=== PATIENT | male | born 1945 | race Caucasian/White ===

== ENCOUNTER 2016-03-26 17:32 | Inpatient (IN) | payer MEDICARE ==
[~2016-03-26] VITALS: Ht 175.3 cm; Wt 79.7 kg
[~2016-03-26 17:32] MED LIST: ASPI-1093 PO; ATOR40TA28 PO; BACL10TA PO; DULO20CA30 PO; PREG50 PO; RISP3 PO; TAMS0.4C32 PO
[2016-03-26 19:15] LABS: BASOPHILS % (AUTO) 0.3 % (0.0-2.0); EOSINOPHILS % (AUTO) 0.5 % (1.0-6.0); HEMATOCRIT 44.6 % (41-53); LYMPHOCYTES % (AUTO) 22.4 % (22.0-44.0); MEAN CORPUSCULAR HGB CONC 33.6 G/dL (31.0-37.0); MEAN CORPUSCULAR VOLUME 95 fL (80-100); MONOCYTES # (AUTO) 0.7 K/uL (0.1-1.0); MONOCYTES % (AUTO) 7.5 % (2.0-9.0); NEUTROPHILS # (AUTO) 6.2 K/uL (1.8-7.7); NEUTROPHILS % (AUTO) 69.3 % (40.0-70.0); PLATELET COUNT (AUTO) 187 K/uL (150-450); RED BLOOD CELL COUNT(AUTO) 4.69 MIL/uL (4.50-5.90); RED CELL DISTRIBUTION WIDTH 13.8 % (11.5-14.5)
[2016-03-26 19:26] LABS: ANION GAP 8 mmol/L (8-16); CALCIUM, TOTAL 8.6 mg/dL (8.8-10.5); CARBON DIOXIDE 27 mmol/L (22-29); CHLORIDE 101 mmol/L (98-107); CREATININE 0.88 mg/dL (0.60-1.30); GLOMERULAR FILTR. RATE CALC > 60 mL/min (>60); POTASSIUM 4.5 mmol/L (3.5-5.1); SODIUM SERUM 136 mmol/L (136-145); UREA NITROGEN, BLOOD 18 mg/dL (7-18)
[2016-03-26 19:32] LABS: ALANINE AMINOTRANSFERASE 24 U/L (12-78); ALBUMIN 3.3 g/dL (3.4-5.0); ASPARTATE AMINOTRANSFERASE 12 U/L (15-37); BILIRUBIN,TOTAL 0.3 mg/dL (0.1-1.0); TOTAL PROTEIN, SERUM 6.5 g/dL (6.4-8.2)
[2016-03-27] MEDS ORDERED: ZOLPIDEM TARTRATE 10 MG TABLET PO ONE (02:00)
[2016-03-27] MEDS ORDERED: ACETAMINOPHEN 325 MG TABLET PO PRN (16:15)
[2016-03-27] MEDS ORDERED: ZOLPIDEM TARTRATE 10 MG TABLET PO PRN (16:15)
[2016-03-27] MEDS ORDERED: MAGNESIUM HYDROXIDE SUSPENSION 30 ML UDCUP PO PRN (16:15)
[2016-03-27] MEDS ORDERED: LORazepam 1 MG TABLET PO PRN (16:15)
[2016-03-27] MEDS ORDERED: HydrOXYzine PAMOATE 50 MG CAPSULE PO PRN (16:15)
[2016-03-27] MEDS ORDERED: PROMETHAZINE HCL 25 MG TABLET PO PRN (16:15)
[2016-03-27] MEDS ORDERED: GuaiFENesin/D-METHORPHAN [SUGAR-FREE] 200-20MG/10 ML SYRUP UDCUP PO PRN (16:15)
[2016-03-27] MEDS ORDERED: QUEtiapine FUMARATE 25 MG TABLET PO PRN (16:15)
[2016-03-27] MEDS ORDERED: MAG HYDROX/AL HYDROX/SIMETH ES 30 ML SUSPENSION UDCUP PO PRN (16:15)
[2016-03-27] MEDS ORDERED: LOPERAMIDE HCL 2 MG CAPSULE PO PRN (16:15)
[2016-03-27] MEDS: PREGABALIN 50 MG CAPSULE PO SCH (19:01)
[2016-03-27] MEDS: THIAMINE HCL 100 MG TABLET PO SCH (19:01)
[2016-03-27] MEDS: QUEtiapine FUMARATE 100 MG TABLET PO SCH (20:08)
[2016-03-27 20:37] VITALS: BP 125/58
[2016-03-27 23:36] LABS: APPEARANCE,URINE CLEAR (CLEAR); GLUCOSE, URINE (UA) NEGATIVE (NEGATIVE); KETONES,URINE NEGATIVE (NEGATIVE); LEUKOCYTE ESTERASE ,URINE NEGATIVE (NEGATIVE); OCCULT BLOOD,URINE NEGATIVE (NEGATIVE); PH,URINE 5.5 (5.0-8.0); PROTEIN,URINE NEGATIVE (NEGATIVE)
[2016-03-27 23:37] LABS: ADD UA MICROSCOPIC NO
[2016-03-28 08:07] LABS: BASOPHILS % (AUTO) 0.6 % (0.0-2.0); EOSINOPHILS % (AUTO) 0.7 % (1.0-6.0); HEMATOCRIT 49.2 % (41-53); HEMOGLOBIN 16.7 g/dL (13.5-17.5); LYMPHOCYTES % (AUTO) 26.4 % (22.0-44.0); MEAN CORPUSCULAR HEMOGLOBIN 32.2 pg (26.0-34.0); MEAN CORPUSCULAR HGB CONC 33.9 G/dL (31.0-37.0); MEAN CORPUSCULAR VOLUME 95 fL (80-100); MONOCYTES # (AUTO) 0.9 K/uL (0.1-1.0); MONOCYTES % (AUTO) 7.5 % (2.0-9.0); NEUTROPHILS # (AUTO) 7.4 K/uL (1.8-7.7); NEUTROPHILS % (AUTO) 64.8 % (40.0-70.0); PLATELET COUNT (AUTO) 170 K/uL (150-450); RED BLOOD CELL COUNT(AUTO) 5.18 MIL/uL (4.50-5.90); RED CELL DISTRIBUTION WIDTH 13.9 % (11.5-14.5); WHITE BLOOD COUNT (AUTO) 11.5 K/uL (4.5-11.0)
[2016-03-28] MEDS: PREGABALIN 50 MG CAPSULE PO SCH ×3 (08:23→16:23)
[2016-03-28] MEDS: DULoxetine HCL 60 MG CAPSULE PO SCH (08:23)
[2016-03-28] MEDS: ASPIRIN 81 MG EC TABLET PO SCH (08:23)
[2016-03-28] MEDS: THIAMINE HCL 100 MG TABLET PO SCH ×2 (08:24→16:23)
[2016-03-28] MEDS: ATORVASTATIN CALCIUM 40 MG TABLET PO SCH (08:24)
[2016-03-28] MEDS: FOLIC ACID 1 MG TABLET PO SCH (08:24)
[2016-03-28] MEDS: MULTIVITAMINS WITH MINERALS, THERAPEUTIC TABLET PO SCH (08:24)
[2016-03-28] MEDS: BACLOFEN 10 MG TABLET PO SCH (08:24)
[2016-03-28] MEDS: TAMSULOSIN HCL 0.4 MG CAPSULE PO SCH (08:24)
[2016-03-28 08:26] LABS: ALANINE AMINOTRANSFERASE 20 U/L (12-78); ALBUMIN 3.5 g/dL (3.4-5.0); ANION GAP 8 mmol/L (8-16); ASPARTATE AMINOTRANSFERASE 15 U/L (15-37); BILIRUBIN,TOTAL 0.4 mg/dL (0.1-1.0); CARBON DIOXIDE 27 mmol/L (22-29); CHLORIDE 104 mmol/L (98-107); CREATININE 0.78 mg/dL (0.60-1.30); GLOMERULAR FILTR. RATE CALC > 60 mL/min (>60); POTASSIUM 4.3 mmol/L (3.5-5.1); SODIUM SERUM 139 mmol/L (136-145); TOTAL PROTEIN, SERUM 6.9 g/dL (6.4-8.2); UREA NITROGEN, BLOOD 22 mg/dL (7-18)
[2016-03-28 09:18] VITALS: BP 116/72
[2016-03-28] MEDS ORDERED: DULO60CA44 PO (13:30)
[2016-03-28] MEDS ORDERED: PREG50 PO (13:30)
[2016-03-28] MEDS ORDERED: QUET100T33 PO (13:30)
[2016-03-28 17:11] VITALS: BP 94/50
[2016-03-28] MEDS: QUEtiapine FUMARATE 100 MG TABLET PO SCH (20:11)
[2016-03-29] MEDS: TAMSULOSIN HCL 0.4 MG CAPSULE PO SCH (08:04)
[2016-03-29] MEDS: ASPIRIN 81 MG EC TABLET PO SCH (08:04)
[2016-03-29] MEDS: FOLIC ACID 1 MG TABLET PO SCH (08:04)
[2016-03-29] MEDS: PREGABALIN 50 MG CAPSULE PO SCH ×3 (08:04→15:54)
[2016-03-29] MEDS: MULTIVITAMINS WITH MINERALS, THERAPEUTIC TABLET PO SCH (08:04)
[2016-03-29] MEDS: THIAMINE HCL 100 MG TABLET PO SCH ×2 (08:04→15:54)
[2016-03-29] MEDS: ATORVASTATIN CALCIUM 40 MG TABLET PO SCH (08:04)
[2016-03-29] MEDS: DULoxetine HCL 60 MG CAPSULE PO SCH (08:04)
[2016-03-29] MEDS: BACLOFEN 10 MG TABLET PO SCH (08:04)
[2016-03-29 08:05] VITALS: BP 126/64
[2016-03-29] MEDS ORDERED: QUET100T PO (08:36)
[2016-03-29] MEDS ORDERED: DULO60CA44 PO (08:40)
== END 2016-03-29 17:45 | disposition home or self-care (01) | DRG 885 ==
LOC: EMS 17:34 → 3EX 03-27 16:36
PROVIDERS: ADMIT Psychiatry & Neurology Psychiatry; ATTEND Psychiatry & Neurology Psychiatry
DX: F25.0 Schizoaffective disorder, bipolar type (principal); N40.0 Benign prostatic hyperplasia without lower urinary tract symptoms; I48.91 Unspecified atrial fibrillation; I10 Essential (primary) hypertension; F32.9 Major depressive disorder, single episode, unspecified; E78.5 Hyperlipidemia, unspecified; E78.00 Pure hypercholesterolemia, unspecified; H40.9 Unspecified glaucoma; G89.4 Chronic pain syndrome; E55.9 Vitamin D deficiency, unspecified; F17.200 Nicotine dependence, unspecified, uncomplicated; I45.4 Nonspecific intraventricular block; Z87.828 Personal history of other (healed) physical injury and trauma; Z79.899 Other long term (current) drug therapy; Z72.89 Other problems related to lifestyle; Z79.82 Long term (current) use of aspirin; Z91.19 Patient's noncompliance with other medical treatment and regimen
CPT/HCPCS: 87081; 99285; G0480